=== PATIENT | female | born 1970 | race Caucasian/White ===

== ENCOUNTER → 2024-09-07 10:17 | Outpatient (REF) | payer BC, SELFPAY | LOC: HWRAD 10:17 | PROVIDERS: ATTENDING PHYSICIAN Family Medicine; FAMILY PHYSICIAN Family Medicine | DX: M25.561 Pain in right knee (principal); G89.29 Other chronic pain; M25.511 Pain in right shoulder | CPT/HCPCS: 73030; 73564 ==

== ENCOUNTER → 2024-09-21 11:40 | Outpatient (REF) | payer BC, SELFPAY | LOC: PAVMRI 11:40 | PROVIDERS: ATTENDING PHYSICIAN Orthopaedic Surgery; FAMILY PHYSICIAN Family Medicine | DX: M25.561 Pain in right knee (principal) | CPT/HCPCS: 73721 ==